=== PATIENT | female | born 1955 | race African-American/Black ===

== ENCOUNTER 2017-02-25 12:17 | Emergency (ER) | payer OTHER ==
[~2017-02-25] VITALS: Ht 154.9 cm; Wt 77.0 kg
[~2017-02-25 12:17] MED LIST: AMLODIPINE10 MG OR; AMLODIPINE10 MG PO; AMOXICILLIN500 MG OR; ATROVENT NAS0.03 %; BRIMONIDINE TAR0.2 % OD; DORZOLAMIDE HCL/1 ML OU; EXEMESTANE25 MG PO; LATANOPROST0.005 % OU; ULTRAM50 M1 OR
[2017-02-25] MEDS ORDERED: EC-NAPROSYN500 MG PO (12:51)
[2017-02-25 12:59] VITALS: BP 152/77
== END 2017-02-25 13:00 | disposition home or self-care (01) | DRG 563 ==
LOC: ED 12:17
DX: S63.502A Unspecified sprain of left wrist, initial encounter (principal); R51 Headache; S56.912A Strain of unspecified muscles, fascia and tendons at forearm level, left arm, initial encounter; S13.4XXA Sprain of ligaments of cervical spine, initial encounter; V43.52XA Car driver injured in collision with other type car in traffic accident, initial encounter; Y92.410 Unspecified street and highway as the place of occurrence of the external cause

== ENCOUNTER 2017-05-11 11:15 | Emergency (ER) | payer OTHER ==
[~2017-05-11] VITALS: Ht 154.9 cm; Wt 80.8 kg
[~2017-05-11 11:15] MED LIST changes: +EC-NAPROSYN500 MG PO
[2017-05-11 13:07] VITALS: BP 129/74
== END 2017-05-11 13:07 | disposition home or self-care (01) | DRG 605 ==
LOC: ED 11:15
DX: S80.01XA Contusion of right knee, initial encounter (principal); S80.02XA Contusion of left knee, initial encounter; I10 Essential (primary) hypertension; W01.0XXA Fall on same level from slipping, tripping and stumbling without subsequent striking against object, initial encounter; Y92.512 Supermarket, store or market as the place of occurrence of the external cause; Z85.3 Personal history of malignant neoplasm of breast

== ENCOUNTER 2017-11-23 03:44 | Observation (INO) | payer OTHER ==
[~2017-11-23] VITALS: Ht 154.9 cm; Wt 80.7 kg
--- NOTE | 2017-11-23 03:50 | NUR ---
PT TO ROOM AMBULATORY FROM WR. TRIAGED IN ROOM
--- NOTE | 2017-11-23 04:00 | NUR ---
PT IS ALERT/ORIENTED X3. RESP EASY REG. LUNGS CLEAR. HEART SOUNDS NORMAL. NO EDEMA. ABD SOFT/NON-TENDER.
[2017-11-23 04:26] LABS: HEMATOCRIT 41.2 % (37.0-47.0); HEMOGLOBIN 12.8 g/dl (12.0-16.0); IMMATURE GRANULOCYTES 0.1 % (0.0-5.0); MEAN CELL VOLUME 80.9 fL CALC (80.0-100.0); MEAN CORPUSCULAR HGB 25.1 pG CALC (26.0-32.0); MEAN CORPUSCULAR HGB CONC 31.1 g/L CALC (32.0-36.0); NEUT# 3.22 thou/uL (2.00-7.15); RED BLOOD COUNT 5.09 mill/uL (4.20-5.60); RED CELL DISTRI WIDTH 15.8 % (11.5-15.5)
[2017-11-23 04:27] LABS: URINE BILIRUBIN - DIPSTICK NEGATIVE (NEGATIVE); URINE BLOOD DIPSTICK SMALL (NEGATIVE); URINE COLOR YELLOW; URINE GLUCOSE - DIPSTICK NEGATIVE (NEGATIVE); URINE KETONE NEGATIVE (NEGATIVE); URINE LEUK ESTERASE NEGATIVE (NEGATIVE); URINE NITRITE - DIPSTICK NEGATIVE (Negative); URINE PH 5.5 (4.5-8.0); URINE PROTEIN - DIPSTICK NEGATIVE (NEG-TRACE); URINE SPECIFIC GRAVITY 1.025; URINE UROBILINOGEN - DIPSTICK 0.2 E.U./dL (0.2)
[2017-11-23 04:28] LABS: URINE CLARITY CLEAR
--- NOTE | 2017-11-23 04:37 | NUR ---
VISITOR AT BEDSIDE
[2017-11-23 04:50] LABS: ALBUMIN 4.4 g/dL (3.2-5.0); ALKALINE PHOSPHATASE 114 u/l (38-126); ANION GAP 14 (6-22 (CALC)); BILIRUBIN, TOTAL 0.5 mg/dL (0.0-1.4); BUN 21 mg/dL (8-23); BUN/CREATININE RATIO 20 (12-20 (CALC)); CARBON DIOXIDE 26 mmol/l (22-30); CHLORIDE 109 mmol/l (95-108); CREATININE 1.1 mg/dL (0.5-1.0); GFR 50 ML/MIN (>=60 (CALC)); GFR FOR AFR.AMER. > 60 ML/MIN (>=60 (CALC)); POTASSIUM 4.4 mmol/l (3.5-5.1); SGOT/AST 30 u/l (9-36); SODIUM 144 mmol/l (137-146); TOTAL PROTEIN 8.4 g/dL (6.3-8.2)
[2017-11-23 05:00] LABS: MYOGLOBIN 30 ng/mL (0 - 62)
[2017-11-23 05:02] LABS: URINE SQUAMOUS EPITHELIAL CELL FEW EPI/hpf (0-FEW)
--- NOTE | 2017-11-23 05:29 | NUR ---
PT RESTING. SPOUSE HOME. VSS.
--- NOTE | 2017-11-23 05:32 | NUR ---
ATTEMPTED TO CALL REPORT. PATRICIO WILL CALL BACK.
--- NOTE | 2017-11-23 05:37 | NUR ---
PATRICIO CALLED BACK TO GET REPORT.
--- NOTE | 2017-11-23 05:47 | NUR ---
TO FLOOR WITHOUT INCIDENT.
--- NOTE | 2017-11-23 05:50 | NUR ---
PT ARRIVED TO FLOOR VIA STRETCHER ACCOMPANIED BY ED NURSE. V/S ASSESSED AND FULL ASSESSMENT COMPLETED. PT REPORTS MODERATE CHEST PAIN AT THIS TIME UPON ARRIVING TO FLOOR, I SPOKE WITH ED NURSE WHILE ON THE UNIT FLOOR REGARDING MEDICATION FOR PAIN, SHE REPORTED THAT THE ED PHYS STATED THAT HE DID NOT HAVE ANY NEW ORDERS AT THIS TIME AND WANTED TO GIVE ASPIRIN TIME TO TAKE EFFECT BEFORE PLACING NEW ORDERS. WILL CONTINUE TO MONITOR. PT ORIENTED TO ROOM,CALL SYSTEM, BED, LIGHTS AND TV. PT POSITIONED IN BED FOR COMFORT. CALL LIGHT AT SIDE AND PT ENCOURAGED TO CALL IF ANY NEEDS ARISE.
[2017-11-23 06:16] VITALS: BP 141/74
--- NOTE | 2017-11-23 07:16 | NUR ---
BEDSIDE REPORT RECEIVED BY AMPARO. PT IS SLEEPING IN BED WITH NO S/S OF DISTRESS NOTED. CALL LIGHT IN REACH.
[2017-11-23 07:59] VITALS: BP 127/71
--- NOTE | 2017-11-23 08:06 | NUR ---
NOTIFIED STAS MELCHOR THAT PT IS HAVING CHEST PAIN. CONCRETE GUN OPERATOR AT BEDSIDE TO ASSESS PT. ORDERS RECEIVED. ASSESSMENT DONE. TELE IN PLACE. RESPS EVEN AND UNLABORED. 18 LW THAT APPEARS HEALTHY. SAFETY PRECAUTIONS REINFORCED AND CALL LIGHT IN REACH.
[2017-11-23 10:40] LABS: CHOLESTEROL HDL RATIO 5.8 (<4.4 (CALC)); MAGNESIUM 2.1 mg/dL (1.6-2.3)
[2017-11-23 11:09] VITALS: BP 126/62
--- NOTE | 2017-11-23 11:40 | NUR ---
PT IS RESTING IN BED WITH NO S/S OF DISTRESS NOTED. PT DENIES PAIN AT THIS TIME. TELE IN PLACE. CALL LIGHT IN REACH. FAMILY IN ROOM.
[2017-11-23] MEDS ORDERED: MEDDOSEPAK PO (12:38)
[2017-11-23] MEDS ORDERED: LIPITOR10 M1 PO (14:15)
--- NOTE | 2017-11-23 14:29 | NUR ---
Discharge instructions given. Patient verbalizes understanding of same. Discharged in stable condition via Wheelchair to Home with volunteer. All belongings sent with pt.
== END 2017-11-23 14:29 | disposition home or self-care (01) | DRG 313 ==
LOC: ED 03:44 → ED-I 04:55 → ED 05:13 → MS2 05:14
PROVIDERS: Emergency Medicine; Nurse Practitioner Family; ADMIT Internal Medicine; ATTEND Internal Medicine
DX: R07.89 Other chest pain (principal); I12.9 Hypertensive chronic kidney disease with stage 1 through stage 4 chronic kidney disease, or unspecified chronic kidney disease; N18.9 Chronic kidney disease, unspecified; E78.5 Hyperlipidemia, unspecified; H40.9 Unspecified glaucoma; Z90.13 Acquired absence of bilateral breasts and nipples; Z85.3 Personal history of malignant neoplasm of breast
CPT/HCPCS: G0378

== ENCOUNTER 2021-04-11 16:15 | Emergency (ER) | payer OTHER ==
[~2021-04-11] VITALS: Ht 154.9 cm; Wt 84.0 kg
[~2021-04-11 16:15] MED LIST changes: +LIPITOR10 M1 PO; +MEDDOSEPAK PO
[2021-04-11 17:04] LABS: HEMATOCRIT 39.9 % (37.0-47.0); HEMOGLOBIN 11.9 g/dl (12.0-16.0); IMMATURE GRANULOCYTES 0.2 % (0.0-5.0); MEAN CELL VOLUME 83.3 fL CALC (80.0-100.0); MEAN CORPUSCULAR HGB 24.8 pG CALC (26.0-32.0); MEAN CORPUSCULAR HGB CONC 29.8 g/dL CAL (32.0-36.0); NEUT# 2.9 thou/uL (2.00-7.15); RED BLOOD COUNT 4.79 mill/uL (4.20-5.60); RED CELL DISTRI WIDTH 15.6 % (11.5-15.5)
[2021-04-11 17:20] LABS: ALKALINE PHOSPHATASE 99 u/l (38-126); ANION GAP 10 (6-22 (CALC)); BILIRUBIN, TOTAL 0.7 mg/dL (0.0-1.4); BUN 19 mg/dL (8-23); BUN/CREATININE RATIO 14 (12-20 (CALC)); CARBON DIOXIDE 28 mmol/l (22-30); CHLORIDE 106 mmol/l (95-108); CREATININE 1.3 mg/dL (0.5-1.0); GFR 41 ML/MIN (>=60 (CALC)); GFR FOR AFR.AMER. 50 ML/MIN (>=60 (CALC)); POTASSIUM 4.7 mmol/l (3.5-5.1); SGOT/AST 33 u/l (9-36); SODIUM 139 mmol/l (137-146); TOTAL PROTEIN 8.2 g/dL (6.3-8.2)
[2021-04-11 18:57] VITALS: BP 114/58
== END 2021-04-11 19:00 | disposition home or self-care (01) | DRG 556 ==
LOC: ED 16:15
PROVIDERS: Family Medicine
DX: M79.645 Pain in left finger(s) (principal); M79.632 Pain in left forearm; I10 Essential (primary) hypertension; Z85.3 Personal history of malignant neoplasm of breast